=== PATIENT | male | born 1990 | race Caucasian/White ===

== ENCOUNTER 2020-09-03 16:12 | Emergency (ER) | payer MEDICAID, SELFPAY ==
[2020-09-03 16:18] VITALS: BP 139/91; PULSE 80; RESP 14; TEMP 37.3; O2SAT 95; BMI 20.2
--- NOTE | 2020-09-03 16:32 | CT_ITS ---
PROCEDURE: CT ABDOMEN PELVIS W CON CLINICAL INDICATION: abd pain Right lower quadrant pain COMPARISON: No exams were available for comparison TECHNIQUE: IV Contrast: 75ML Isovue 370 Oral Contrast None Axial images obtained with sagittal and coronal reformats. All CT scans at the facility use one or more dose reduction, viz: automated exposure control, ma/kV adjustment per patient size (including targeted exams where dose is matched to indication, i.e. head), or iterative reconstruction technique. FINDINGS: LOWER THORAX: The left lower chest is not included. There is a 6 mm noncalcified nodule in the left lower lobe anteriorly and a 4 mm noncalcified nodule in the subpleural region of the left lower lobe ABDOMEN & PELVIS: The liver, gallbladder, spleen, adrenal glands, pancreas, and kidneys have an unremarkable appearance. No renal or ureteral calculi. No hydronephrosis. The appendix is retrocecal. No evidence of appendicitis. There is a mild amount of retained colonic feces. No intestinal obstruction or free air. There is wall thickening of the gastric antrum and gastric body. There is bilateral pars defects at L5 with only minimal anterolisthesis of L5. IMPRESSION: 1. Thickening of the gastric body and antrum suggesting gastritis. 2. Left lower lobe pulmonary nodules. Consider 6-12 month follow-up. Dictated by: Paulino Hernandez MD 09/03/2020 19:18 Paulino Hernandez MD in [place] 09/03/2020 19:18
[2020-09-03 16:38] LABS: Microscopic, Urine URINE MICROSCOPIC (MICROSCOPIC)
[2020-09-03 16:40] LABS: Appearance,Urine CLEAR (Clear); Bilirubin,Urine Negative (Negative); Blood, Urine Negative (Negative); Color,Urine YELLOW (Yellow); Glucose,Urine (UA) Negative (Negative); Ketones,Urine Negative (Negative); Leukocyte Esterase,Urine Negative (Negative); Nitrate,Urine Negative (Negative); Protein,Urine Negative (Negative); Urobilinogen,Urine 0.2 EU/dl (0.2)
--- NOTE | 2020-09-03 16:56 | HMH.EDGENADL ---
ED Disposition Clinical Impression: Abdominal pain Qualifiers: Abdominal location: generalized Qualified Code(s): R10.84 - Generalized abdominal pain Gastritis Qualifiers: Gastritis type: unspecified gastritis Chronicity: acute Gastritis bleeding: without bleeding Qualified Code(s): K29.00 - Acute gastritis without bleeding Disposition: Home, Self-Care Condition on Discharge: Good Instructions: DI for Gastritis, DI for Abdominal Pain-Adult Additional Instructions: Additional instructions for ABDOMINAL PAIN: See your physician as soon as possible for further evaluation. Return immediately if worsening abdominal pain, vomiting, shortness of breath, fever, vomiting of blood or abdominal distention. Prescriptions: Pantoprazole Sodium [Protonix 40mg tablet] 40 mg PO DAILY #15 tab Prescription Printed Referrals: Kerline Srivastava [Primary Care Provider] - - Critical Care Critical Care Time: No Attestation: On 09/03/20, the high probability of a clinically significant, sudden or life threatening deterioration of the following system(s) required my full and direct attention, intervention and personal management. The time I documented below is in addition to time spent performing reported procedures but includes the following listed in this critical care notation. Medical Decision Making - Dominik Inquiry Pt receiving controlled substance: No Vital Signs: 09/03/20 16:18 09/03/20 18:22 09/03/20 18:58 Temperature 99.2 F 98 F Temperature Source Oral Oral Pulse Rate 78 Pulse Rate [Right Radial] 80 71 Respiratory Rate 14 16 16 Blood Pressure 123/74 Blood Pressure [Right Arm] 139/91 H 123/75 Blood Pressure Mean [Right Arm] 107 91 Blood Pressure Source [Right Arm] Automatic Cuff Automatic Cuff Blood Pressure Position Sitting Blood Pressure Position [Right Arm] Sitting Sitting 02 Sat by Pulse Oximetry 95 97 Oxygen Delivery Method Room Air Room Air Room Air - Lab Data Lab results reviewed: Yes: I reviewed the patient's lab results. Lab Results 09/03/20 16:23: Urine Color Yellow, Urine Appearance Clear, Urine pH 7.0, Ur Specific [place] 1.020, Urine Protein Negative, Urine Glucose (UA) Negative, Urine Ketones Negative, Urine Blood Negative, Urine Nitrate Negative, Urine Bilirubin Negative, Urine Urobilinogen 0.2, Ur Leukocyte Esterase Negative, Urine WBC Occasional, Amorphous Sediment 2+, Urine Bacteria 3+ 09/03/20 16:52: WBC 9.9, RBC 5.57, Hgb 16.5, Hct 49.9, MCV 89.7, MCH 29.7, MCHC 33.1, RDW 13.7, Plt Count 356, MPV 7.5, Neut % (Auto) 62.0, Lymph % (Auto) 26.4, [place] % (Auto) 4.9, Eos % (Auto) 5.7, Baso % (Auto) 1.0, Neut # (Auto) 6.1, Lymph # (Auto) 2.6, [place] # (Auto) 0.5, Eos # (Auto) 0.6 H, Baso # (Auto) 0.1 09/03/20 16:52: Sodium 139, Potassium 4.5, Chloride 101, Carbon Dioxide 29, Anion Gap 13.5, BUN 11, Creatinine 0.90, Estimated Creat Clear 102, Estimated GFR 101, Est GFR ( Amer) 122, Glucose 102 H, Calcium 10.1, Total Bilirubin 0.4, AST 41, ALT 24, Alkaline Phosphatase 106, Total Protein 8.5 H, Albumin 5.2 H, Globulin 3.3 H, Albumin/Globulin Ratio 1.6 09/03/20 16:52: Troponin I < 0.01, Lipase 37 Result diagrams: 09/03/20 16:52 09/03/20 16:52 Orders (Tests/Meds): ED MEDICATIONS Discontinued Medications Generic Name Dose Route Start Last Admin Trade Name Freq PRN Reason Stop Dose Admin Iopamidol 75 ml 09/03/20 17:57 09/03/20 17:58 Iopamidol-370 (76%);100ml Bottle IV 09/03/20 17:58 75 ml ONCE ONE Administration Pantoprazole Sodium 40 mg 09/03/20 18:24 09/03/20 18:34 Pantoprazole 40mg Vial IV 09/03/20 18:25 40 mg ONCE ONE Administration Sodium Chloride 10 ml 09/03/20 17:57 09/03/20 17:58 Sodium Chloride 0.9% 10ml Syr (Rad Only) IV 10/03/20 17:56 10 ml NEEDED PRN Administration Maintain IV Site Sodium Chloride 10 ml 09/03/20 18:24 09/03/20 18:34 Sodium Chloride 0.9% 10ml Vial IV 10/03/20 18:23 10 ml NEEDED PRN Administr
[2020-09-03 16:59] LABS: Amorphous Sediment,Urine 2+ /lpf; Bacteria,Urine 3+ /lpf; WBC,Urine Occasional #/hpf (0-3)
[2020-09-03 17:04] LABS: Basophils # 0.1 K/mm3 (0-0.2); Eosinophils # 0.6 K/mm3 (0.0-0.4); Eosinophils % 5.7 % (0.1-12.0); Hematocrit 49.9 % (42.0-52.0); Hemoglobin 16.5 g/dL (14.1-18.0); Lymphocytes # 2.6 K/mm3 (0.7-4.5); Lymphocytes % 26.4 % (10-50); Mean Corpuscular HGB Conc 33.1 g/dL (31.8-35.4); Mean Corpuscular Hemoglobin 29.7 pg (27.0-31.2); Mean Corpuscular Volume 89.7 fl (80-94); Mean Platelet Volume 7.5 fl (7.4-10.4); Monocytes # 0.5 K/mm3 (0.1-1.0); Monocytes % 4.9 % (1.7-9.3); Neutrophils # 6.1 K/mm3 (1.8-7.8); Platelet Count 356 K/mm3 (142-424); Red Blood Count 5.57 M/mm3 (4.60-6.20); Red Cell Distribution Width 13.7 % (11.5-17.5); White Blood Count 9.9 K/mm3 (4.8-10.8)
[2020-09-03 17:14] LABS: Chloride 101 mmol/L (98-107); Potassium 4.5 mmoL/L (3.5-5.1); Sodium 139 mmol/L (136-145)
[2020-09-03 17:16] LABS: Alanine Aminotransferase 24 U/L (12-78); Aspartate Amino Transferase 41 U/L (17-59); Blood Urea Nitrogen 11 mg/dl (9-20); Creatinine Clearance Estimated 102 mL/min (50-200); Estimated Glomerular Filt Rate 101 ml/min (>60); GFR (African American) 122 ML/MIN (>60)
[2020-09-03 17:17] LABS: Albumin Level 5.2 g/dl (3.5-5.0); Albumin/Globulin Ratio 1.6 (1.1-1.8); Alkaline Phosphatase 106 U/L (38-126); Anion Gap 13.5 mEq/L (5-15); Bilirubin,Total 0.4 mg/dl (0.2-1.3); Calcium 10.1 mg/dl (8.4-10.2); Carbon Dioxide 29 mmol/L (22.0-30.0); Globulin 3.3 g/dL (1.3-3.2); Glucose 102 mg/dl (74-100); Lipase 37 U/L (23-300); Total Protein,Serum 8.5 g/dl (6.3-8.2)
[2020-09-03 17:34] LABS: Troponin I < 0.01 ng/ml (0.00-0.034)
--- NOTE | 2020-09-03 18:02 | PC.NURSE ---
pt return from ct
--- NOTE | 2020-09-03 18:09 | ECG_ITS ---
APPROVED REPORT Exam: Resting ECG HR:70 bpm ECG Measurements Heart Rate [address] 124 P QRSd 94 QRS 126 QT 410 T 121 QTc 442 Conclusion Normal sinus rhythm RSR' or QR pattern in V1 suggests right ventricular conduction delay Lateral infarct, age undetermined Abnormal ECG Electronically signed by : Glenn Sesay, 09/07/2020 07:32:14
[2020-09-03 18:22] VITALS: BP 123/75; PULSE 71; RESP 16; O2SAT 97
[2020-09-03 18:58] VITALS: BP 123/74; PULSE 78; RESP 16; TEMP 36.6; O2SAT 98
== END 2020-09-03 19:00 | disposition home or self-care (01) ==
PROVIDERS: Emergency Provider Emergency Medicine; PCP General Practice
DX: K29.00 Acute gastritis without bleeding (principal); R10.84 Generalized abdominal pain
CPT/HCPCS: 74177; 80053; 81001; 83690; 84484; 85025; 87086; 93005; 96374; 99283; Q9967

== ENCOUNTER 2021-11-10 01:50 | Emergency (ER) | payer MEDICAID, SELFPAY ==
[2021-11-10 01:51] VITALS: BP 108/81; PULSE 86; RESP 16; TEMP 36.8; O2SAT 100; BMI 19.5
--- NOTE | 2021-11-10 02:42 | CT_ITS ---
PROCEDURE INFORMATION: Exam: CT Abdomen And Pelvis With Contrast Exam date and time: 11/10/2021 2:42 AM Age: 30 years old Clinical indication: Nausea and vomiting; Abdominal pain; Additional info: N/v/d and abd pain TECHNIQUE: Imaging protocol: Computed tomography of the abdomen and pelvis with contrast. Radiation optimization: All CT scans at this facility use at least one of these dose optimization techniques: automated exposure control; mA and/or kV adjustment per patient size (includes targeted exams where dose is matched to clinical indication); or iterative reconstruction. Contrast material: ISOVUE; Contrast volume: 75 ml; Contrast route: IV; COMPARISON: CT ABDOMEN PELVIS W CON 09/03/2020 5:50 PM FINDINGS: Lungs: 6 mm nodule in the left lower lung. Liver: Region of decreased attenuation in the left hepatic lobe likely represents focal fatty infiltration. The rest of the liver is unremarkable. Gallbladder and bile ducts: Normal. No calcified stones. No ductal dilation. Pancreas: Normal. No ductal dilation. Spleen: Normal. No splenomegaly. Adrenal glands: Normal. No mass. Kidneys and ureters: Normal. No hydronephrosis. Stomach and bowel: Unremarkable. No obstruction. No mucosal thickening. Appendix: No evidence of appendicitis. Intraperitoneal space: Unremarkable. No free air. No significant fluid collection. Vasculature: Unremarkable. No abdominal aortic aneurysm. Lymph nodes: Unremarkable. No enlarged lymph nodes. Urinary bladder: Unremarkable as visualized. Reproductive: Unremarkable as visualized. Bones/joints: Bilateral L5 pars defects. Soft tissues: Unremarkable. IMPRESSION: 1. No acute appearing findings. 2. Bilateral L5 pars defects. 3. 6 mm nodule in the left lower lung is slightly bigger. For patients at low risk (minimal or absent history of smoking and of other known risk factors), recommend CT Chest at 3-6 months, then consider CT Chest at 18-24 months. For patients at high risk (history of smoking or of other known risk factors), recommend CT Chest at 3-6 months, then CT Chest at 18-24 months. (Reference: Lakeshia) REFERENCES: Lakeshia Dias et al. Guidelines for Management of Incidental Pulmonary Nodules Detected on CT Images: From the Fleischner Society 2017. Radiology. 2017;284(1):228-243.
[2021-11-10 02:50] LABS: Microscopic, Urine URINE MICROSCOPIC (MICROSCOPIC)
[2021-11-10 02:54] LABS: Appearance,Urine CLEAR (Clear); Blood, Urine TRACE-I (Negative); Color,Urine YELLOW (Yellow); Glucose,Urine (UA) Negative (Negative); Ketones,Urine 2+ (Negative); Leukocyte Esterase,Urine Negative (Negative); Nitrate,Urine Negative (Negative); PH,Urine 5.5 (5.0-8.5); Protein,Urine TRACE (Negative); Specific Gravity, Urine >= 1.030 (1.005-1.030); Urobilinogen,Urine 0.2 EU/dl (0.2)
[2021-11-10 02:57] LABS: Basophils # 0.1 K/mm3 (0-0.2); Basophils % 0.4 % (0.1-2.0); Eosinophils # 0.1 K/mm3 (0.0-0.4); Eosinophils % 0.7 % (0.1-12.0); Hematocrit 39.3 % (42.0-52.0); Hemoglobin 12.3 g/dL (14.1-18.0); Lymphocytes # 0.7 K/mm3 (0.7-4.5); Lymphocytes % 4.5 % (10-50); Mean Corpuscular HGB Conc 31.4 g/dL (31.8-35.4); Mean Corpuscular Volume 92.3 fl (80-94); Mean Platelet Volume 7.8 fl (7.4-10.4); Monocytes # 0.3 K/mm3 (0.1-1.0); Monocytes % 2.1 % (1.7-9.3); Neutrophils # 13.5 K/mm3 (1.8-7.8); Neutrophils % 92.2 % (37.0-80.0); Platelet Count 430 K/mm3 (142-424); Red Blood Count 4.26 M/mm3 (4.60-6.20); Red Cell Distribution Width 13.2 % (11.5-17.5); White Blood Count 14.7 K/mm3 (4.8-10.8)
[2021-11-10 03:03] LABS: Alanine Aminotransferase 23 U/L (12-78); Albumin Level 4.4 g/dl (3.5-5.0); Albumin/Globulin Ratio 1.5 (1.1-1.8); Alkaline Phosphatase 85 U/L (38-126); Anion Gap 13.4 mEq/L (5-15); Aspartate Amino Transferase 42 U/L (17-59); Bilirubin,Total 0.6 mg/dl (0.2-1.3); Blood Urea Nitrogen 17 mg/dl (9-20); Calcium 9.2 mg/dl (8.4-10.2); Carbon Dioxide 30 mmol/L (22.0-30.0); Chloride 98 mmol/L (98-107); Creatinine Clearance Estimated 126 mL/min (50-200); Estimated Glomerular Filt Rate 134 ml/min (>60); GFR (African American) 162 ML/MIN (>60); Glucose 123 mg/dl (74-100); Lipase 11 U/L (23-300); Potassium 4.4 mmoL/L (3.5-5.1); Sodium 137 mmol/L (136-145); Total Protein,Serum 7.4 g/dl (6.3-8.2)
[2021-11-10 03:19] LABS: Bilirubin,Urine Negative (Negative)
[2021-11-10 03:20] LABS: MANUAL DIFFERENTIAL MANUAL DIFFERENTIAL (MANUAL DIFF)
[2021-11-10 03:21] LABS: Bacteria,Urine 1+ /lpf; Mucus,Urine 1+ /lpf
--- NOTE | 2021-11-10 03:43 | HMH.EDABDPAI ---
ED Disposition Clinical Impression: Gastroenteritis Disposition: Home, Self-Care Condition on Discharge: Good Instructions: Viral Gastroenteritis, DI for Acute Abdominal Pain Additional Instructions: Please follow up with your primary care physician in 2-3 days for further management. Please use the zofran as prescribed, may also use tylenol and ibuprofen. Please also use the cefdinir as prescribed. Please return to the ED for any concerning symptom such as inability to have bowel movement, bloody stools, chest pain, lethargy or any other concerning symptoms. Prescriptions: Cefdinir [Cefdinir 250mg/5ml Oral Susp] 250 mg PO BID #14 ml Transmission Status: Sent to [facility] Ondansetron [Zofran 4mg ODT] 4 mg PO TIDP PRN #20 tab PRN Reason: Nausea Transmission Status: Received by [facility] Referrals: Kerline Srivastava [Primary Care Provider] - Forms: Work/School Release Time of Disposition: 03:55 - Critical Care Critical Care Time: No Attestation: On 11/10/21, the high probability of a clinically significant, sudden or life threatening deterioration of the following system(s) required my full and direct attention, intervention and personal management. The time I documented below is in addition to time spent performing reported procedures but includes the following listed in this critical care notation. Medical Decision Making - Medical Records Medical records reviewed: Yes: I reviewed the patient's medical records. - Dominik Inquiry Pt receiving controlled substance: No Vital Signs: 11/10/21 01:51 11/10/21 03:55 Temperature 98.3 F 98.4 F Temperature Source Oral Oral Pulse Rate 68 Pulse Rate [Right Radial] 86 Respiratory Rate 16 14 Blood Pressure 120/76 Blood Pressure [Right Arm] 108/81 L Blood Pressure Mean [Right Arm] 90 Blood Pressure Source Automatic Cuff Blood Pressure Source [Right Arm] Automatic Cuff Blood Pressure Position Sitting Blood Pressure Position [Right Arm] Sitting 02 Sat by Pulse Oximetry 100 Oxygen Delivery Method Room Air Room Air - Lab Data Lab results reviewed: Yes: I reviewed the patient's lab results. Lab Results 11/10/21 02:05: Urine Color Yellow, Urine Appearance Clear, Urine pH 5.5, Ur Specific [place] >= 1.030, Urine Protein Trace, Urine Glucose (UA) Negative, Urine Ketones 2+, Urine Blood Trace-i, Urine Nitrate Negative, Urine Bilirubin Negative, Urine Urobilinogen 0.2, Ur Leukocyte Esterase Negative, Urine WBC 3-5, Urine Bacteria 1+, Urine Mucus 1+ 11/10/21 02:30: WBC 14.7 H, RBC 4.26 L, Hgb 12.3 L, Hct 39.3 L, MCV 92.3, MCH 29.0, MCHC 31.4 L, RDW 13.2, Plt Count 430 H, MPV 7.8, Neut % (Auto) 92.2 H, Lymph % (Auto) 4.5 L, [place] % (Auto) 2.1, Eos % (Auto) 0.7, Baso % (Auto) 0.4, Neut # (Auto) 13.5 H, Lymph # (Auto) 0.7, [place] # (Auto) 0.3, Eos # (Auto) 0.1, Baso # (Auto) 0.1, Total Counted 100, Neutrophils % (Manual) 92 H, Lymphocytes % (Manual) 8 L, Platelet Estimate Normal, Macrocytosis 1+, Ovalocytes 1+, Acanthocytes (Spur) 1+ 11/10/21 02:30: Sodium 137, Potassium 4.4, Chloride 98, Carbon Dioxide 30, Anion Gap 13.4, BUN 17, Creatinine 0.70, Estimated Creat Clear 126, Estimated GFR 134, Est GFR ( Amer) 162, Glucose 123 H, Calcium 9.2, Total Bilirubin 0.6, AST 42, ALT 23, Alkaline Phosphatase 85, Total Protein 7.4, Albumin 4.4, Globulin 3.0, Albumin/Globulin Ratio 1.5, Lipase 11 L Result diagrams: 11/10/21 02:30 11/10/21 02:30 Orders (Tests/Meds): ED MEDICATIONS Discontinued Medications Generic Name Dose Route Start Last Admin Trade Name Freq PRN Reason Stop Dose Admin Lactated Ringer's 1,000 mls @ 999 mls/hr 11/10/21 02:45 11/10/21 02:50 Lactated Ringer's 1000 Ml Bag IV 11/10/21 03:45 999 mls/hr .Q1H1M ONEL Administration Iopamidol 75 ml 11/10/21 03:08 11/10/21 03:09 Iopamidol-370 (76%);100ml Bottle IV 11/10/21 03:09 75 ml ONCE ONE Administration Ketorolac Tromethamine 30 mg 11/10/21 02:44 11/10/21 02:
[2021-11-10 03:55] VITALS: BP 120/76; PULSE 68; RESP 14; TEMP 36.9; O2SAT 98
[2021-11-10 04:01] LABS: Acanthocytes 1+; Lymphocytes % 8 % (10-50); Macrocytosis 1+; Neutrophils % 92 % (42-76); Ovalocytes 1+; Platelet Estimate Normal; Total Cells Counted 100
== END 2021-11-10 03:57 | disposition home or self-care (01) ==
PROVIDERS: Emergency Provider Student in an Organized Health Care Education/Training Program; PCP General Practice
DX: R10.9 Unspecified abdominal pain (principal); B34.9 Viral infection, unspecified; R11.10 Vomiting, unspecified; Z79.899 Other long term (current) drug therapy
CPT/HCPCS: 74177; 80053; 81001; 83690; 85007; 85025; 96365; 96375; 99283; J2405; Q9967

== ENCOUNTER 2021-11-11 09:51 | Emergency (ER) | payer MEDICAID, SELFPAY ==
[2021-11-11 09:53] VITALS: BP 129/90; PULSE 91; RESP 18; TEMP 37.1; O2SAT 98; BMI 19.5
--- NOTE | 2021-11-11 10:35 | HMH.EDNVD ---
ED Disposition Clinical Impression: Vomiting Disposition: Home, Self-Care Condition on Discharge: Good Instructions: Nausea and Vomiting-Adult Additional Instructions: Please follow up with your primary care physician in 2-3 days for further management. Please take your zofran by placing under your tongue. Please continue to take your medication for your urinary tract infection. May also take tylenol and ibuprofen for pain control. Please return for any concerning symptoms such as difficulty breathing, vomiting blood, vomiting green or any other concerning symptoms. Referrals: Kerline Srivastava [Primary Care Provider] - - Critical Care Critical Care Time: No Attestation: On 11/11/21, the high probability of a clinically significant, sudden or life threatening deterioration of the following system(s) required my full and direct attention, intervention and personal management. The time I documented below is in addition to time spent performing reported procedures but includes the following listed in this critical care notation. Medical Decision Making - Medical Records Medical records reviewed: Yes: I reviewed the patient's medical records. - Dominik Inquiry Pt receiving controlled substance: No Vital Signs: 11/11/21 09:53 11/11/21 10:38 Temperature 98.7 F Temperature Source Oral Pulse Rate [Right Radial] 91 H Respiratory Rate 18 Blood Pressure 128/77 Blood Pressure [Right Arm] 129/90 Blood Pressure Mean [Right Arm] 103 Blood Pressure Source [Right Arm] Automatic Cuff Blood Pressure Position [Right Arm] Right Lateral 02 Sat by Pulse Oximetry 98 100 Oxygen Delivery Method Room Air Room Air - Lab Data Lab results reviewed: Yes: I reviewed the patient's lab results. Orders (Tests/Meds): ED MEDICATIONS Discontinued Medications Generic Name Dose Route Start Last Admin Trade Name Charles PRN Reason Stop Dose Admin Ondansetron HCl 4 mg 11/11/21 10:27 11/11/21 10:34 Ondansetron 4mg Odt SL 11/11/21 10:28 4 mg ONCE ONE Administration Medical Decision Narrative: Mr. Shetty is a 30 yo male w/ no significant PMH who presents to the ED for abdominal pain, N/V, recblly seen yesterday for the same thing. Patient is afebrile and hemodynamically stable on arrival. Abdomen is non perionitic no rebound or guarding, mild abdominal tenderness. Physical exam no clinical signs of dehydration, cap refill <2, goo dskin turgor. Patient is given zofran ODT and po challenged successfully. Patient is instructed to keep plan given to him during his prior visit. He will follow up with his primary care team. He will utilize the zofran as prescribed to help w/ symptoms. Patient instructed to drink plenty of water and to eat 3 balanced meals. Patient provided strict return precuations such as inability to eat and drink . Nausea/Vomiting/Diarrhea HPI - General Chief complaint: Nausea/Vomiting/Diarrhea Stated complaint: vomiting, chills Time Seen by Provider: 11/11/21 09:55 Mode of Arrival: Ambulatory Source of Information: Patient Limitations: No Limitations Description of Symptoms (Recalled from ER Triage Doc. by RN): Pt c/o N/V/D. Pt states that he was seen in the ED last week for same symptoms, got to feeling better, then began again this AM - History of Present Illness HPI Narrative: Mr. Shetty is a 30 yo male w/ no significant PMH who presents to the ED for nausea and vomiting. Patient was seen in the ED yesterday for the same thing within the last 24 hours. He reports that he did not take his zofran because he is unable to keep it down. He reports that he has also been unable to take his cefdiniri due to vomiting. He continue to have non bloody non bilious emesis. Patient denies any fevers, chills, chest pain, dyspnea, or other systemic signs of infection. Bowel movements have been normal. He denies any other infectious symptoms. MD complaint: nausea, vomiting Onset (ago): day(s) Description of Vomiting: food
[2021-11-11 10:38] VITALS: BP 128/77; O2SAT 100
[2021-11-11 11:03] VITALS: BP 116/64; PULSE 90; RESP 16; TEMP 36.8; O2SAT 97
== END 2021-11-11 11:05 | disposition home or self-care (01) ==
PROVIDERS: Emergency Provider Student in an Organized Health Care Education/Training Program; PCP General Practice
DX: R11.2 Nausea with vomiting, unspecified (principal)
CPT/HCPCS: 99281

== ENCOUNTER 2023-05-16 19:50 | Emergency (ER) | payer MEDICAID, SELFPAY ==
[2023-05-16 19:51] VITALS: BP 127/82; PULSE 72; RESP 17; TEMP 37.2; O2SAT 99; BMI 18.8
--- NOTE | 2023-05-16 19:51 | ECG_ITS ---
APPROVED REPORT Exam: Resting ECG HR:71 bpm ECG Measurements Heart Rate [address] 124 P 60 QRSd 102 QRS 91 QT 373 T 72 QTc 396 Conclusion SINUS RHYTHM BORDERLINE RIGHT AXIS DEVIATION [QRS AXIS > 90] BORDERLINE ECG UNCONFIRMED REPORT Electronically signed by : Glenn Sesay MD 05/16/2023 20:41:38
--- NOTE | 2023-05-16 19:55 | XR_ITS ---
PROCEDURE INFORMATION: Exam: XR Chest Exam date and time: 05/16/2023 7:55 PM Age: 32 years old Clinical indication: Pain; Right-sided; Additional info: Right sided chest pain, no chest surgeries. Patient uses electronic cigarettes. TECHNIQUE: Imaging protocol: Radiologic exam of the chest. Views: 2 views. COMPARISON: CT ABDOMEN PELVIS W CON 11/10/2021 3:00 AM FINDINGS: Lungs: Hyperlucent changes are demonstrated. Increase in the lung volumes is demonstrated. Pleural spaces: Unremarkable. No pleural effusion. No pneumothorax. Heart/Mediastinum: Unremarkable. No cardiomegaly. Diaphragm: There is flattening of the hemidiaphragms. Bones/joints: Unremarkable. IMPRESSION: Findings suggesting mild changes of chronic obstructive pulmonary disease.
[2023-05-16 20:00] VITALS: BP 125/96; PULSE 80; O2SAT 98
--- NOTE | 2023-05-16 20:03 | HMH.EDGENADL ---
Discharge Plan Disposition Patient Disposition: Home, Self-Care Condition: Good Prescriptions Prescriptions: No Action buprenorphine-naloxone 1 EACH tablet, sublingual 2 each SL DAILY ondansetron 4 MG tablet,disintegrating 4 mg PO TIDP PRN (Reason: Nausea) Qty: 20 0RF cefdinir 250 MG/5 ML suspension for reconstitution 250 mg PO BID Qty: 14 0RF Referrals Follow up/Referrals: Kerline Srivastava MD [Primary Care Provider] - See instructions Activity Restrictions/Add. Instructions Additional Instructions/Restrictions: Please follow-up with your primary care provider. Please return to the emergency department if you develop any new or worsening symptoms or become concerned for your health. Clinical Impressions Clinical Impression: Atypical chest pain Discharge ED Provider: Govind Farias Adult HPI General Chief complaint: Chest Pain Stated complaint: Chest pain Time Seen by Provider: 05/16/23 19:55 Mode of Arrival: Ambulatory Source of Information: Patient Limitations: No Limitations Description of Symptoms (Recalled from ER Triage Doc. by RN): 32 M presents from home with 2 nights of worsening chest pain. Patient reports this is right sided at his nipple specifically. He describes it as sharp and stabbing. Patient denies cardiac history. NAD, VSS. History of Present Illness HPI narrative: 32-year-old male, previously healthy, presents with right-sided chest pain for the last 2 days. Reports it started as he was playing with his 2-year-old. Pain is intermittent. Nothing specifically makes it better or worse. No reported cardiac history. No history of blood clots or recent mobilization. Related Data Home Medications Medication Instructions Recorded Confirmed buprenorphine 8 mg-naloxone 2 mg 2 each SL DAILY Opiod addiction 11/10/21 11/10/21 sublingual tablet Previous Rx's Medication Instructions Recorded cefdinir 250 mg/5 mL oral 250 mg (5 mL) PO BID #14 mL 11/10/21 suspension ondansetron 4 mg disintegrating 4 mg PO TIDP PRN Nausea #20 tabs 11/10/21 tablet Allergies Allergy/AdvReac Type Severity Reaction Status Date / Time No Known Allergies Allergy Verified 09/03/20 16:32 [facility] Disclaimer: The information contained in this section may have been updated after the patient was seen, as this information can be updated by other users. Social History Smoking Status: Current every day smoker alcohol intake: current current occupational status: previously employed Travel in the last 8 weeks: None ROS Obtained: Yes All systems reviewed & no additional complaints except as documented Physical Exam General General appearance: alert and anxious Head Head exam: atraumatic and normocephalic Eye Eye exam: Present normal appearance, PERRL and EOMI ENT ENT exam: Present normal oropharynx and normal external ear exam Neck Neck exam: Present normal inspection and full ROM Chest Chest inspection: Present normal inspection and symmetric chest wall rise; Absent tenderness Respiratory Respiratory exam: Present normal lung sounds bilaterally; Absent respiratory distress Cardiovascular Cardiovascular exam: Present regular rate and normal rhythm Abdominal Exam Abdominal exam: Present soft; Absent distention, tenderness or guarding Extremities Exam Extremities exam: Present normal inspection; Absent edema or joint swelling Back Exam Back exam: Present normal inspection; Absent tenderness Neurological Exam Neurological exam: Present alert and oriented X3; Absent motor sensory deficit Psychiatric Psychiatric exam: Present normal affect and normal mood Skin Skin exam: Present warm, dry and normal color Lymphatic Lymphatic Findings: no adenopathy Medical Decision Making Medical Records Medical records reviewed: Yes I reviewed the patient's medical records. Dominik Inquiry Pt receiving controlled substance: No Dominik was queried for this patient: No Vital S
[2023-05-16 20:08] LABS: Basophils # 0.1 K/mm3 (0-0.2); Basophils % 0.6 % (0.1-2.0); Eosinophils # 0.2 K/mm3 (0.0-0.4); Eosinophils % 2.4 % (0.1-12.0); Hematocrit 43.9 % (42.0-52.0); Lymphocytes # 2.7 K/mm3 (0.7-4.5); Lymphocytes % 26.2 % (10-50); Mean Corpuscular HGB Conc 31.9 g/dL (31.8-35.4); Mean Corpuscular Hemoglobin 29.3 pg (27.0-31.2); Mean Corpuscular Volume 91.8 fl (80-94); Mean Platelet Volume 7.9 fl (7.4-10.4); Monocytes # 0.5 K/mm3 (0.1-1.0); Monocytes % 5.3 % (1.7-9.3); Neutrophils # 6.7 K/mm3 (1.8-7.8); Neutrophils % 65.4 % (37.0-80.0); Platelet Count 333 K/mm3 (142-424); Red Blood Count 4.79 M/mm3 (4.60-6.20); Red Cell Distribution Width 13.4 % (11.5-17.5); White Blood Count 10.2 K/mm3 (4.8-10.8)
[2023-05-16 20:18] LABS: Alanine Aminotransferase 23 U/L (12-78); Albumin/Globulin Ratio 1.9 (1.1-1.8); Alkaline Phosphatase 65 U/L (38-126); Anion Gap 11.5 mEq/L (5-15); Aspartate Amino Transferase 35 U/L (17-59); Bilirubin,Total 0.2 mg/dl (0.2-1.3); Blood Urea Nitrogen 13 mg/dl (9-20); Calcium 8.9 mg/dl (8.4-10.2); Carbon Dioxide 32 mmol/L (22.0-30.0); Chloride 102 mmol/L (98-107); Creatinine Clearance Estimated 92 mL/min (50-200); Estimated Glomerular Filt Rate 99 ml/min (>60); GFR (African American) 120 ML/MIN (>60); Globulin 2.6 g/dL (1.3-3.2); Glucose 86 mg/dl (74-100); Potassium 3.5 mmoL/L (3.5-5.1); Sodium 142 mmol/L (136-145); Total Protein,Serum 7.6 g/dl (6.3-8.2)
[2023-05-16 20:30] VITALS: BP 100/71; PULSE 74; O2SAT 97
[2023-05-16 20:41] LABS: Troponin I < 0.01 ng/ml (0.00-0.034)
[2023-05-16 21:23] VITALS: BP 106/75; PULSE 79; RESP 17; TEMP 36.9; O2SAT 98
== END 2023-05-16 21:22 | disposition home or self-care (01) ==
PROVIDERS: Emergency Provider Emergency Medicine; PCP General Practice
DX: R07.89 Other chest pain (principal); F17.200 Nicotine dependence, unspecified, uncomplicated
CPT/HCPCS: 71046; 80053; 84484; 85025; 93005; 99285

== ENCOUNTER 2023-07-21 19:04 | Emergency (ER) | payer MEDICAID, SELFPAY ==
[2023-07-21 19:05] VITALS: BP 135/93; PULSE 91; RESP 18; TEMP 37.1; O2SAT 99; BMI 19.5
--- NOTE | 2023-07-21 19:31 | HMH.EDGENADL ---
Discharge Plan Disposition Patient Disposition: Home, Self-Care Prescriptions Prescriptions: New prednisone 20 mg tablet 40 mg PO BID 5 Days Qty: 20 0RF No Action buprenorphine-naloxone 1 EACH tablet, sublingual 2 each SL DAILY ondansetron 4 MG tablet,disintegrating 4 mg PO TIDP PRN (Reason: Nausea) Qty: 20 0RF cefdinir 250 MG/5 ML suspension for reconstitution 250 mg PO BID Qty: 14 0RF Referrals Follow up/Referrals: Kreline Srivastava MD [Primary Care Provider] - See instructions Activity Restrictions/Add. Instructions Additional Instructions/Restrictions: Call your family doctor to establish care for this visit to the emergency department and schedule follow-up within 48 hours to ensure improvement. If you have any worsening of your condition or any other concerning signs or symptoms, return to the emergency department or your primary care doctor for further evaluation. Talk to your family doctor about scheduling physical therapy for meniscus tear. Clinical Impressions Clinical Impression: Acute pain of right knee, Acute medial meniscal tear Discharge ED Provider: Jaswant Asher General Adult HPI General Chief complaint: PAIN Stated complaint: right knee pain and swelling, no accident Time Seen by Provider: 07/21/23 19:13 Mode of Arrival: Ambulatory Source of Information: Patient Limitations: No Limitations Description of Symptoms (Recalled from ER Triage Doc. by RN): Patient reports right knee pain 6/10 starting approximately 1 week ago. With new onset swelling of the outer aspect of knee starting 3 days ago. Patient denies any fall or repetitive work injury. Patient reports no history of joint disease or arthritis. History of Present Illness HPI narrative: 32-year-old male presenting with atraumatic right knee pain. Started couple days ago, hurts middle aspect of his right knee. Minimal swelling medial aspect of his right knee. No redness, swelling of the calf, patient is still able to bear weight. No fevers or chills, or any other swollen, painful joints. Related Data Home Medications Medication Instructions Recorded Confirmed buprenorphine 8 mg-naloxone 2 mg 2 each SL DAILY Opiod addiction 11/10/21 11/10/21 sublingual tablet Previous Rx's Medication Instructions Recorded cefdinir 250 mg/5 mL oral 250 mg (5 mL) PO BID #14 mL 11/10/21 suspension ondansetron 4 mg disintegrating 4 mg PO TIDP PRN Nausea #20 tabs 11/10/21 tablet prednisone 20 mg tablet 40 mg PO BID 5 days #20 tabs 07/21/23 Allergies Allergy/AdvReac Type Severity Reaction Status Date / Time No Known Allergies Allergy Verified 09/03/20 16:32 [facility] Disclaimer: The information contained in this section may have been updated after the patient was seen, as this information can be updated by other users. Social History (Updated 05/16/23 @ 23:46 by Govind Farias MD) Smoking Status: Current every day smoker alcohol intake: current current occupational status: previously employed Travel in the last 8 weeks: None ROS Obtained: Yes All systems reviewed & no additional complaints except as documented Physical Exam General General appearance: alert and in no apparent distress Respiratory Respiratory exam: Absent respiratory distress Cardiovascular Cardiovascular exam: Present regular rate and normal rhythm Extremities Exam Extremities exam: Present full ROM and other (Tenderness medial aspect of right joint space. No obvious swelling. No unilateral changes as compared to left. Mild tenderness to posterior medial aspect of knee and popliteal fossa without swelling. Neurovascularly intact) Neurological Exam Neurological exam: Present alert Medical Decision Making Medical Records Medical records reviewed: Yes I reviewed the patient's medical records. Dominik Inquiry Pt receiving controlled substance: No Vital Signs: 07/21/23 19:05 Temperature 98.8 F Temperature Source Or
[2023-07-21 19:44] VITALS: BP 128/89; PULSE 90; RESP 17; TEMP 36.6; O2SAT 95
== END 2023-07-21 19:47 | disposition home or self-care (01) ==
PROVIDERS: Emergency Provider Emergency Medicine; PCP General Practice
DX: S83.241A Other tear of medial meniscus, current injury, right knee, initial encounter (principal); M25.561 Pain in right knee; F17.210 Nicotine dependence, cigarettes, uncomplicated; X58.XXXA Exposure to other specified factors, initial encounter
CPT/HCPCS: 99284

== ENCOUNTER 2023-10-21 12:00 | Emergency (ER) | payer SELFPAY ==
[2023-10-21 12:03] VITALS: BP 145/86; PULSE 94; RESP 18; TEMP 36.9; O2SAT 99; BMI 18.8
--- NOTE | 2023-10-21 12:09 | PC.NURSE ---
Pt wound soaking in hibiclens and sterile water
--- NOTE | 2023-10-21 12:11 | XR_ITS ---
PROCEDURE INFORMATION: Exam: XR Left Hand Exam date and time: 10/21/2023 12:13 PM Age: 32 years old Clinical indication: Injury or trauma; Other: Cut by tailgate; Laceration; Left; Index finger and middle finger and ring finger; Additional info: [place] trauma digits 2/4 TECHNIQUE: Imaging protocol: Radiologic exam of the left hand. Views: 3 or more views. COMPARISON: No relevant prior studies available. FINDINGS: Bones/joints: There is no evidence of acute fracture.There is no evidence of malalignment or dislocation. Soft tissues: Normal. IMPRESSION: There is no evidence of acute fracture.There is no evidence of malalignment or dislocation.
--- NOTE | 2023-10-21 12:11 | ED_ITS ---
Discharge Plan Disposition Patient Disposition: Home, Self-Care Chief Complaint: Wound/Laceration Prescriptions Prescriptions: No Action buprenorphine-naloxone 1 EACH tablet, sublingual 2 each SL DAILY ondansetron 4 MG tablet,disintegrating 4 mg PO TIDP PRN (Reason: Nausea) Qty: 20 0RF cefdinir 250 MG/5 ML suspension for reconstitution 250 mg PO BID Qty: 14 0RF prednisone 20 mg tablet 40 mg PO BID 5 Days Qty: 20 0RF Referrals Follow up/Referrals: Kerline Srivastava MD [Primary Care Provider] - See instructions Activity Restrictions/Add. Instructions Additional Instructions/Restrictions: At this time it was felt you are safe to be discharged home. If new or wors ening symptoms please do not hesitate to return the emergency department. Please apply the bacitracin ointment to your open wounds once a day for 2 days. Please change your dressing once daily and then subsequently allow your wound to scab over and heal. Clinical Impressions Clinical Impression: Hand trauma, Skin tear of left hand without complication Instructions Patient Instructions: DI for Laceration Repair Discharge ED Provider: Ousmane Avila General Adult HPI General Chief complaint: Wound/Laceration Stated complaint: AO 10/21 laceration to left pointer&middle finger Time Seen by Provider: 10/21/23 12:00 History of Present Illness HPI narrative: Patient is a 32-year-old male with no pertinent past medical history presents emergency department for evaluation of dorsal hand trauma on the left. Patient is right-handed. Patient got his fingers 2-4 caught in a tailgate resulting in a wound causing him to present here for evaluation. Last Tdap unknown. No other acute complaints or other trauma sustained. Related Data Home Medications Medication Instructions Recorded Confirmed buprenorphine 8 mg-naloxone 2 mg 2 each SL DAILY Opiod addiction 11/10/21 11/10/21 sublingual tablet Previous Rx's Medication Instructions Recorded cefdinir 250 mg/5 mL oral 250 mg (5 mL) PO BID #14 mL 11/10/21 suspension ondansetron 4 mg disintegrating 4 mg PO TIDP PRN Nausea #20 tabs 11/10/21 tablet prednisone 20 mg tablet 40 mg PO BID 5 days #20 tabs 07/21/23 Allergies Allergy/AdvReac Type Severity Reaction Status Date / Time No Known Allergies Allergy Verified 09/03/20 16:32 [facility] Disclaimer: The information contained in this section may have been updated after the patient was seen, as this information can be updated by other users. Social History (Updated 05/16/23 @ 23:46 by Govind Farias MD) Smoking Status: Current every day smoker alcohol intake: current current occupational status: previously employed Travel in the last 8 weeks: None ROS Obtained: Yes Systems reviewed as appropriate & no additional complaints except as documented Physical Exam General General appearance: alert and in no apparent distress Head Head exam: atraumatic and normocephalic Eye Eye exam: Present PERRL ENT ENT exam: Present mucous membranes moist Neck Neck exam: Present normal inspection Chest Chest inspection: Present normal inspection and symmetric chest wall rise Respiratory Respiratory exam: Absent respiratory distress Cardiovascular Cardiovascular exam: Present regular rate and normal rhythm Extremities Exam Extremities exam: Present other (Scattered skin tears over the dorsal digits 2 through 4, no deep lacerations. Tenderness over the proximal middle phalanges digits 2 through 4 distal capillary refill preserved. No nailbed injuries. Palpable left radial pulse.) Neurological Exam Neurological exam: Present alert Psychiatric Psychiatric exam: Present normal affect Skin Skin exam: Present warm and dry Medical Decision Making [place] Inquiry Pt receiving controlled substance: No Vital Signs: 10/21/23 12:03 Temperature 98.4 F Temperature Source Oral Pulse Rate [Right] 94 H Respiratory Rate 18 Blood Pressure [Right Arm] 145/86 H Blood Pressure Mean [Right Arm] 105 Blood Pressure Source [Right Arm] Automatic Cuff 02 Sat by Pulse Oximetry 99 Oxygen Delivery Method Room Air Orders (Tests/Meds): ED MEDICATIONS Generic Name Dose Route Start Last Admin Trade Name Freq PRN Reason Stop Dose Admin Tetanus/Reduced Diphtheria/Acell Pertussis 0.5 ml 10/21/23 12:11 10/21/23 12:27 Tet/Diphth/Pert-Adult 0.5ml Syringe IM 10/21/23 12:12 0.5 ml .ONCE ONE Administration ORDERS Category Date Time Status Hand XR left minimum 3 views [XR hand LT min 3V] Stat Exams 10/21/23 12:11 Taken Medical Decision Narrative: In summary patient is a 32-year-old male past medical history described above presents emergency department for evaluation of traumatic injury sustained getting his hand caught in a tailgate. Patient is hemodynamically stable nontoxic upon arrival, limited trauma per history and physical exam. Given this trauma survey will be conducted with plain film of the left hand. Wounds are skin tears and will be irrigated however primary repair with sutures is not indicated. Plain films will be obtained screening for fracture. Tdap will be updated given greater than 5 years since last administration. Wound was cleaned at bedside, 2 skin tears were repaired with glue, remainder of wounds will be left to heal by secondary intention. Wound was dressed at bedside. X-ray informally interpreted by me, no acute significantly displaced fracture or dislocation. Given this patient is appropriate for discharge at this time. Wound repair and dressing noted. Procedure performed by Ousmane Avila, dressing applied by tech. Using Dermabond skin tears were glued to facilitate approximation where able, site #1 with skin tear over the dorsal middle phalanx, site 2 was the dorsal second phalanx and dorsal second PIP joint. Where tissue was completely avulsed they were covered in bacitracin and will be left a heal by secondary intention. Nonstick gauze was applied over the wounds and they were wrapped in Kerlix. The index finger was placed in a splint to help facilitate wound healing over the joint. Patient tolerated the procedure well. There were no immediate complications Critical Care Critical Care Time Critical Care Time: No
--- NOTE | 2023-10-21 12:17 | PC.NURSE ---
RAD at BS for hand XRAY
[2023-10-21] MEDS: TET/DIPHTH/PERT-ADULT 0.5ML SYRINGE 0.5 ML IM (12:27)
[2023-10-21 12:40] VITALS: BP 130/88; PULSE 77; RESP 18; TEMP 36.6; O2SAT 96
== END 2023-10-21 12:45 | disposition home or self-care (01) ==
PROVIDERS: Emergency Provider Emergency Medicine; PCP General Practice
DX: S61.412A Laceration without foreign body of left hand, initial encounter (principal); S69.90XA Unspecified injury of unspecified wrist, hand and finger(s), initial encounter; F17.210 Nicotine dependence, cigarettes, uncomplicated; Z23 Encounter for immunization; W23.0XXA Caught, crushed, jammed, or pinched between moving objects, initial encounter
CPT/HCPCS: 73130; 90471; 90715; 99283

== ENCOUNTER 2023-12-09 22:56 | Emergency (ER) | payer MEDICAID, SELFPAY ==
--- NOTE | 2023-12-09 22:55 | ECG_ITS ---
APPROVED REPORT Exam: Resting ECG HR:70 bpm ECG Measurements Heart Rate 70 AXES MO 118 P 71 QRSd 108 QRS 90 QT 377 T 70 QTc 398 Conclusion SINUS RHYTHM WITH SHORT MO INTERVAL INCOMPLETE RIGHT BUNDLE BRANCH BLOCK [90+ ms QRS DURATION, TERMINAL R IN V1/V2, 40+ ms S IN I/aVL/V4/V5/V6] BORDERLINE ECG UNCONFIRMED REPORT Electronically signed by : LAKIA FINE, 12/12/2023 10:50:44
[2023-12-09 22:56] VITALS: BP 135/87; PULSE 82; RESP 14; TEMP 36.9; O2SAT 96; BMI 19.3
[2023-12-09 23:00] VITALS: BP 133/85; PULSE 74; RESP 14; O2SAT 98
[2023-12-09 23:13] VITALS: PULSE 70
--- NOTE | 2023-12-09 23:16 | XR_ITS ---
PROCEDURE INFORMATION: Exam: XR Chest Exam date and time: 12/09/2023 11:28 PM Age: 32 years old Clinical indication: Pain; Chest pressure; Additional info: Chest pain TECHNIQUE: Imaging protocol: Radiologic exam of the chest. Views: 2 views. COMPARISON: CR XR CHEST 2V 05/16/2023 7:55 PM FINDINGS: Lungs: Unremarkable. No consolidation. Pleural spaces: Unremarkable. No pleural effusion. No pneumothorax. Heart/Mediastinum: Unremarkable. No cardiomegaly. Bones/joints: Unremarkable. IMPRESSION: No acute findings.
[2023-12-09 23:22] LABS: Basophils # 0.1 K/mm3 (0-0.2); Basophils % 1.4 % (0.1-2.0); Eosinophils # 0.6 K/mm3 (0.0-0.4); Eosinophils % 7.2 % (0.1-12.0); Hematocrit 39.9 % (42.0-52.0); Hemoglobin 12.7 g/dL (14.1-18.0); Lymphocytes # 3.5 K/mm3 (0.7-4.5); Lymphocytes % 43.1 % (10-50); Mean Corpuscular Hemoglobin 30.1 pg (27.0-31.2); Mean Corpuscular Volume 94.3 fl (80-94); Mean Platelet Volume 7.4 fl (7.4-10.4); Monocytes # 0.6 K/mm3 (0.1-1.0); Monocytes % 7.1 % (1.7-9.3); Neutrophils # 3.4 K/mm3 (1.8-7.8); Neutrophils % 41.2 % (37.0-80.0); Platelet Count 319 K/mm3 (142-424); Red Blood Count 4.22 M/mm3 (4.60-6.20); Red Cell Distribution Width 13.3 % (11.5-17.5); White Blood Count 8.2 K/mm3 (4.8-10.8)
[2023-12-09] MEDS: ACETAMINOPHEN 500MG TAB 1000 MG PO (23:23)
[2023-12-09] MEDS: BELLADONNA ALKALOIDS 60 ML ML PO (23:23)
[2023-12-09 23:27] LABS: Alanine Aminotransferase 25 U/L (12-78); Albumin Level 4.2 g/dl (3.5-5.0); Albumin/Globulin Ratio 1.8 (1.1-1.8); Alkaline Phosphatase 65 U/L (38-126); Anion Gap 7.6 mEq/L (5-15); Aspartate Amino Transferase 35 U/L (17-59); Bilirubin,Total 0.4 mg/dl (0.2-1.3); Blood Urea Nitrogen 12 mg/dl (9-20); Calcium 8.6 mg/dl (8.4-10.2); Carbon Dioxide 29 mmol/L (22.0-30.0); Chloride 108 mmol/L (98-107); Creatinine Clearance Estimated 104 mL/min (50-200); Estimated Glomerular Filt Rate 114 ml/min (>60); GFR (African American) 137 ML/MIN (>60); Globulin 2.3 g/dL (1.3-3.2); Glucose 121 mg/dl (74-100); Potassium 3.6 mmoL/L (3.5-5.1); Sodium 141 mmol/L (136-145); Total Protein,Serum 6.5 g/dl (6.3-8.2)
[2023-12-09 23:30] VITALS: BP 125/75; PULSE 64; RESP 12; O2SAT 96
[2023-12-09 23:41] LABS: Troponin I < 0.01 ng/ml (0.00-0.034)
[2023-12-10] VITALS: BP 112/66; PULSE 65; RESP 14; O2SAT 97
--- NOTE | 2023-12-10 00:08 | HMH.EDGENADL ---
Discharge Plan Disposition Patient Disposition: Home, Self-Care Condition: Good Chief Complaint: Chest Pain Prescriptions Prescriptions: No Action buprenorphine-naloxone 1 EACH tablet, sublingual 2 each SL DAILY ondansetron 4 MG tablet,disintegrating 4 mg PO TIDP PRN (Reason: Nausea) Qty: 20 0RF cefdinir 250 MG/5 ML suspension for reconstitution 250 mg PO BID Qty: 14 0RF prednisone 20 mg tablet 40 mg PO BID 5 Days Qty: 20 0RF Referrals Follow up/Referrals: Provider,Referral, MD [Primary Care Provider] - See instructions Activity Restrictions/Add. Instructions Additional Instructions/Restrictions: Follow-up with your primary care doctor as scheduled. Return to the emergency department if worsening or persistent symptoms. Clinical Impressions Clinical Impression: Chest pain of unknown etiology Instructions Patient Instructions: DI for Atypical Chest Pain Discharge ED Provider: Kandice Wyatt General Adult HPI General Chief complaint: Chest Pain Stated complaint: Chest pain Time Seen by Provider: 12/09/23 23:15 Mode of Arrival: Ambulatory Source of Information: Patient Limitations: No Limitations Description of Symptoms (Recalled from ER Triage Doc. by RN): patient ambulatory to ED with complaints of right side chest pain that begain x2hrs ago. Denies SOA or radiating pain at this time. History of Present Illness HPI narrative: Xiang Shetty is a 32-year-old male with previous medical history of gastritis and Suboxone use presenting with right-sided chest pain since tonight. Shortly prior to arrival patient was at rest holding his daughter when he began to have sharp right-sided chest pain. It lasted a few minutes before subsiding for a few minutes and then returning again. It is since resolved and he now is asymptomatic but had been concerned by the pain so presented to the emergency department out of concern for possible heart problem or another cause. He has never had chest pain like this before . During the chest pain he had some possible shortness of breath and lightheadedness which has also resolved. Related Data Home Medications Medication Instructions Recorded Confirmed buprenorphine 8 mg-naloxone 2 mg 2 each SL DAILY Opiod addiction 11/10/21 11/10/21 sublingual tablet Previous Rx's Medication Instructions Recorded cefdinir 250 mg/5 mL oral 250 mg (5 mL) PO BID #14 mL 11/10/21 suspension ondansetron 4 mg disintegrating 4 mg PO TIDP PRN Nausea #20 tabs 11/10/21 tablet prednisone 20 mg tablet 40 mg PO BID 5 days #20 tabs 07/21/23 Allergies Allergy/AdvReac Type Severity Reaction Status Date / Time No Known Allergies Allergy Verified 09/03/20 16:32 [facility] Disclaimer: The information contained in this section may have been updated after the patient was seen, as this information can be updated by other users. Social History Smoking Status: Current every day smoker alcohol intake: current current occupational status: previously employed Travel in the last 8 weeks: None ROS Obtained: Yes All systems reviewed & no additional complaints except as documented Physical Exam General General appearance: alert and in no apparent distress Head Head exam: atraumatic, normocephalic and normal inspection Eye Eye exam: Present normal appearance, PERRL and EOMI ENT ENT exam: Present normal exam, normal oropharynx, mucous membranes moist and normal external ear exam Neck Neck exam: Present normal inspection, full ROM and trachea midline; Absent meningismus or lymphadenopathy Chest Chest inspection: Present normal inspection and symmetric chest wall rise; Absent tenderness Respiratory Respiratory exam: Present normal lung sounds bilaterally; Absent respiratory distress, wheezes, stridor or accessory muscle use Cardiovascular Cardiovascular exam: Present regular rate, normal rhythm and normal heart sounds; Absent irregular rhythm or JVD Abdominal Exam Abdominal exam: Present soft and normal bowel sounds; Absent distention, tenderness, guarding or Wyatt's sign Abdominal tenderness: Absent RUQ, RLQ, LUQ, LLQ or epigastrium Extremities Exam Extremities exam: Present normal inspection, full ROM and normal capillary refill; Absent calf tenderness Back Exam Back exam: Present normal inspection; Absent tenderness Neurological Exam Neurological exam: Present alert and oriented X3 Psychiatric Psychiatric exam: Present normal affect and normal mood Skin Skin exam: Present warm, dry, intact and normal color Lymphatic Lymphatic Findings: no adenopathy Medical Decision Making Medical Records Medical records reviewed: Yes I reviewed the patient's medical records. Dominik Inquiry Pt receiving controlled substance: No Vital Signs: 12/09/23 22:56 12/09/23 23:13 12/09/23 23:00 Temperature 98.4 F Temperature Source Oral Pulse Rate 70 74 Pulse Rate [Left] 82 Respiratory Rate 14 14 Blood Pressure 133/85 Blood Pressure [Right Arm] 135/87 Blood Pressure Mean 93 Blood Pressure Mean [Right Arm] 103 Blood Pressure Source [Right Arm] Automatic Cuff Blood Pressure Position [Right Arm] Sitting 02 Sat by Pulse Oximetry 96 98 Oxygen Delivery Method Room Air Room Air Lab Data Lab Results 12/09/23 23:01: WBC 8.2, RBC 4.22 L, Hgb 12.7 L, Hct 39.9 L, MCV 94.3 H, MCH 30.1, MCHC 32.0, RDW 13.3, Plt Count 319, MPV 7.4, Neut % (Auto) 41.2, Lymph % (Auto) 43.1, [place] % (Auto) 7.1, Eos % (Auto) 7.2, Baso % (Auto) 1.4, Neut # (Auto) 3.4, Lymph # (Auto) 3.5, [place] # (Auto) 0.6, Eos # (Auto) 0.6 H, Baso # (Auto) 0.1, Sodium 141, Potassium 3.6, Chloride 108 H, Carbon Dioxide 29, Anion Gap 7.6, BUN 12, Creatinine 0.80, Estimated Creat Clear 104, Estimated GFR 114, Est GFR ( Amer) 137, Glucose 121 H, Calcium 8.6, Total Bilirubin 0.4, AST 35, ALT 25, Alkaline Phosphatase 65, Troponin I < 0.01, Total Protein 6.5, Albumin 4.2, Globulin 2.3, Albumin/Globulin Ratio 1.8 12/09/23 23:01 12/09/23 23:01 Orders (Tests/Meds): ED MEDICATIONS Discontinued Medications Generic Name Dose Route Start Last Admin Trade Name Freq PRN Reason Stop Dose Admin Acetaminophen 1,000 mg 12/09/23 23:15 12/09/23 23:23 Acetaminophen 500mg Tab PO 12/09/23 23:16 1,000 mg ONCE ONE Administration Belladonna Alkaloids 60 ml 12/09/23 23:15 12/09/23 23:23 [place]onna Alkaloids 60 Ml Ml PO 12/09/23 23:16 60 ml ONCE ONE Administration ORDERS Category Date Time Status Chest XR 2 view (NOT portable) [XR chest 2V] Stat Exams 12/09/23 23:16 Taken CBC [Complete Blood Count Auto Diff] Stat Lab 12/09/23 23:01 Completed CMP [Comprehensive Metabolic Panel] Stat Lab 03/02/24 23:01 Completed Trop I [Troponin I] Stat Lab 12/09/23 23:01 Completed Troponin I Q3H Lab 12/10/23 02:30 Ordered Troponin I Q3H Lab 12/10/23 05:30 Ordered ECG Data Tracing #1: I reviewed this ECG and interpreted as documented below: Normal rate, regular rhythm, no significant ST segment elevation, normal sinus rhythm. ECG initial impression date: 12/09/23 ECG initial impression time: 22:59 ECG normal with no acute: arrhythmias, ischemia, conduction abnormalities, chamber hypertrophy HEART Score History (anamnesis): Slightly suspicious ECG: Non-specific disturbance Age: <45 years Risk factors: 1-2 risk factors Troponin: </= normal limit HEART Score: 2 Medical Decision Narrative: Patient was immediately evaluated upon arrival and determined to be hemodynamically stable. He was asymptomatic. No nitroglycerin or aspirin was not indicated at this time. Presentation was concerning for ACS, pneumothorax, pneumonia, pleuritis, less likely pericarditis, and patient had pulmonary embolism rule out criteria negative so exceedingly unlikely to have a pulmonary embolism. For this reason obtained EKG which I independently reviewed and interpreted as above undetermined showed normal sinus rhythm. Obtained CBC, CMP, troponin and chest x-ray. Independently reviewed and interpreted labs which were significant for only mild anemia, normal CMP and normal troponin. Chest x-ray independently reviewed and interpreted showed no pneumothorax, focal consolidations, or other concerns to explain his chest pain. Heart score is 2. Discussed with patient that at this time is unclear what caused his chest pain however he seems to have no life-threatening causes that are likely to have triggered his chest pain. Patient currently has a primary care appointment set up for December 19 but provided return precautions and instructions for caring for his symptoms at home and discharged while asymptomatic and hemodynamically stable. Critical Care Critical Care Time Critical Care Time: No
[2023-12-10 00:30] VITALS: BP 115/69; PULSE 58; RESP 12; O2SAT 96
[2023-12-10 01:08] VITALS: BP 102/66; PULSE 59; RESP 12; TEMP 36.9; O2SAT 98
== END 2023-12-10 01:09 | disposition home or self-care (01) ==
PROVIDERS: Emergency Provider Emergency Medicine; PCP General Practice
DX: R07.9 Chest pain, unspecified (principal); F17.200 Nicotine dependence, unspecified, uncomplicated
CPT/HCPCS: 71046; 80053; 84484; 85025; 93005; 99285

== ENCOUNTER 2024-02-06 18:00 | Outpatient (CLI) | payer MEDICAID, SELFPAY ==
[2024-02-06 19:41] LABS: 25-OH Vitamin D, Total 34.5 ng/mL (30-100)
[2024-02-06 20:02] LABS: Hemoglobin A1C 5.5 % (4.0-6.0)
[2024-02-06 20:28] LABS: Folate 7.74 ng/mL; Vitamin B12 653 pg/mL (239-931)
[2024-02-06 22:01] LABS: Iron 127 ug/dL (49-181)
[2024-02-06 22:10] LABS: Total Iron Binding Capacity 251 ug/dL (261-462)
[2024-02-06 22:37] LABS: Ferritin 80.8 ng/ml (17.9-464)
== END 2024-02-06 23:59 | disposition home or self-care (01) ==
LOC: LAB.DROPOF 02-07 10:56
PROVIDERS: PCP Student in an Organized Health Care Education/Training Program; Visit Provider Student in an Organized Health Care Education/Training Program
DX: D64.9 Anemia, unspecified (principal); Z13.21 Encounter for screening for nutritional disorder; Z13.29 Encounter for screening for other suspected endocrine disorder; Z13.1 Encounter for screening for diabetes mellitus
CPT/HCPCS: 82306; 82607; 82728; 82746; 83036; 83540; 83550; 84443

== ENCOUNTER 2024-03-27 10:20 | Outpatient (CLI) | payer MEDICAID, SELFPAY ==
[2024-03-28 09:33] LABS: HIV (1&2) Antibody Rapid NON REACTIVE
[2024-03-29 08:22] LABS: HCV Ab Non Reactive (Non Reactive)
== END 2024-03-27 23:59 | disposition home or self-care (01) ==
LOC: LAB.DROPOF 03-28 10:21
PROVIDERS: PCP Nurse Practitioner Family; Visit Provider Nurse Practitioner Family
DX: L81.8 Other specified disorders of pigmentation (principal); F19.90 Other psychoactive substance use, unspecified, uncomplicated; R10.84 Generalized abdominal pain

== ENCOUNTER 2024-08-05 14:25 | Outpatient (CLI) | payer MEDICAID, SELFPAY ==
[2024-08-05 18:35] LABS: Basophils # 0.1 K/mm3 (0-0.2); Basophils % 0.7 % (0.1-2.0); Eosinophils # 0.3 K/mm3 (0.0-0.4); Eosinophils % 3.4 % (0.1-12.0); Hematocrit 45.6 % (42.0-52.0); Hemoglobin 14.9 g/dL (14.1-18.0); Lymphocytes # 2.1 K/mm3 (0.7-4.5); Lymphocytes % 26.1 % (10-50); Mean Corpuscular HGB Conc 32.7 g/dL (31.8-35.4); Mean Corpuscular Hemoglobin 30.4 pg (27.0-31.2); Mean Platelet Volume 7.5 fl (7.4-10.4); Monocytes # 0.3 K/mm3 (0.1-1.0); Monocytes % 4.3 % (1.7-9.3); Neutrophils # 5.2 K/mm3 (1.8-7.8); Neutrophils % 65.5 % (37.0-80.0); Platelet Count 373 K/mm3 (142-424); Red Blood Count 4.91 M/mm3 (4.60-6.20); Red Cell Distribution Width 13.4 % (11.5-17.5); White Blood Count 7.9 K/mm3 (4.8-10.8)
[2024-08-05 18:55] LABS: Alanine Aminotransferase 18 U/L (12-78); Albumin Level 4.7 g/dl (3.5-5.0); Alkaline Phosphatase 74 U/L (38-126); Anion Gap 18.3 mEq/L (5-15); Aspartate Amino Transferase 31 U/L (17-59); Bilirubin,Total 0.5 mg/dl (0.2-1.3); Blood Urea Nitrogen 15 mg/dl (9-20); Calcium 9.5 mg/dl (8.4-10.2); Carbon Dioxide 28 mmol/L (22.0-30.0); Chloride 100 mmol/L (98-107); Estimated Glomerular Filt Rate 113 ml/min (>60); GFR (African American) 136 ML/MIN (>60); Globulin 2.4 g/dL (1.3-3.2); Glucose 81 mg/dl (74-100); Potassium 4.3 mmoL/L (3.5-5.1); Sodium 142 mmol/L (136-145); Total Protein,Serum 7.1 g/dl (6.3-8.2)
[2024-08-05 19:30] LABS: Thyroid Stimulating Hormone 1.08 uIU/mL (0.465-4.68)
[2024-08-05 20:05] LABS: Vitamin B12 609 pg/mL (239-931)
[2024-08-05 20:21] LABS: Folate 4.73 ng/mL
[2024-08-05 21:47] LABS: Iron 115 ug/dL (49-181)
[2024-08-05 21:56] LABS: Total Iron Binding Capacity 252 ug/dL (261-462)
== END 2024-08-05 23:59 | disposition home or self-care (01) ==
LOC: LAB.DROPOF 08-06 15:21
PROVIDERS: PCP Student in an Organized Health Care Education/Training Program; Visit Provider Student in an Organized Health Care Education/Training Program
DX: R51.9 Headache, unspecified (principal); D64.9 Anemia, unspecified; Z13.29 Encounter for screening for other suspected endocrine disorder
CPT/HCPCS: 80050; 80053; 82607; 82728; 82746; 83540; 83550; 83735; 84443; 85025

== ENCOUNTER 2024-08-10 20:33 | Emergency (ER) | payer MEDICAID, SELFPAY ==
[2024-08-10 20:33] VITALS: BP 132/98; PULSE 85; RESP 15; TEMP 36.8; O2SAT 100; BMI 18.6
--- NOTE | 2024-08-10 20:35 | ED_ITS ---
Discharge Plan Disposition Patient Disposition: Home, Self-Care Prescriptions Prescriptions: No Action polyethylene glycol 3350 [Miralax] 17 gram/dose powder 17 g PO BID Qty: 510 5RF Rx Instructions: 1 capful BID until BM produced. Then decrease to 1 capful daily. Ubrelvy 100 mg tablet 100 mg PO ONCE buprenorphine-naloxone 1 EACH tablet, sublingual 2 each sublingual DAILY topiramate 25 mg tablet 25 mg PO DAILY Patient Comments: TAKE 1 TABLET BY MOUTH DAILY Nurtec ODT 75 mg tablet,disintegrating 75 mg PO DIRECTED Patient Comments: DISSOLVE 1 TABLET ON THE TONGUE 1 TIME NEEDED FOR MIGRAINE HEADACHE Referrals Follow up/Referrals: Provider,Referral, MD [Referring] - See instructions Activity Restrictions/Add. Instructions Additional Instructions/Restrictions: No evidence of any acute cardiopulmonary emergency please follow-up with your primary care doctor and return with any significant worsening symptoms Clinical Impressions Clinical Impression: Atypical chest pain Print Language Print Language: Peruvian Discharge ED Provider: Mihai Person [facility] <JOSH Andrade - Last Filed: 08/10/24 21:35> General Chief Complaint: Chest Pain Stated Complaint: chest pain Time Seen by Provider: 08/10/24 20:35 Description of Symptoms (Recalled from ER Triage Doc. by RN): Patient presents for evaluation of chest pain. Patient states he woke up with chest pain this morning but eventually it went away and so he decided to ignore it. However he was at an event this evening and it came back. He was not doing anything specifically physical. Patient has had intermittent chest pain previously but is all been on the right side of his chest. This is his first left-sided chest pain. He does have a history of substance abuse but has been longtime sober maintained on Suboxone therapy. He does have a history of a heart murmur and a family history of ischemic heart disease before age 50 and to that end he was evaluated by cardiology on 08 August. Further testing is planned but obviously has not been done yet. Currently denies fever chills hemoptysis hematochezia melena nausea vomit diarrhea. Currently he rates his pain as a 3 out of 10 but was much worse earlier today. Related Data Home Medications ?Medication ?Instructions ?Recorded ?Confirmed buprenorphine 8 mg-naloxone 2 mg 2 each sublingual DAILY Opiod 11/10/21 08/10/24 sublingual tablet addiction ubrogepant 100 mg tablet (Ubrelvy) 100 mg PO ONCE 08/08/24 08/10/24 rimegepant 75 mg disintegrating 75 mg PO DIRECTED 08/10/24 08/10/24 tablet (Nurtec ODT) topiramate 25 mg tablet 25 mg PO DAILY 08/10/24 08/10/24 Previous Rx's ?Medication ?Instructions ?Recorded polyethylene glycol 3350 17 17 g PO BID #510 grams 07/03/24 gram/dose oral powder (Miralax) Allergies Allergy/AdvReac Type Severity Reaction Status Date / Time Sulfa (Sulfonamide AdvReac Rash Verified 08/08/24 13:25 Antibiotics) [facility] <JOSH Andrade - Last Filed: 08/10/24 21:35> [facility] Disclaimer: The information contained in this section may have been updated after the patient was seen, as this information can be updated by other users. Medical History (Updated 08/10/24 @ 23:13 by Mihai Person MD) Vapes nicotine containing substance Abnormal electrocardiogram [ECG] [EKG] Encounter for removal of sutures Laceration of right forearm IV drug user Atypical chest pain Gastroenteritis Acute medial meniscal tear Hand trauma Skin tear of left hand without complication Surgical History No significant past surgical history Family History Other No significant family history Social History Smoking Status: Current every day smoker tobacco type: e-cigarettes alcohol intake: never substance use type: former substance user, crack/cocaine, heroin and IV drugs current occupational status: previously employed Travel in the last 8 weeks: None Other Medical History Have you received the Flu Vaccine for this season: No Have you received the Pneumonia Vaccine: No <JOSH Andrade - Last Filed: 08/10/24 21:35> ROS Obtained: Yes Systems reviewed as appropriate & no additional complaints except as documented Physical Exam <JOSH Andrade - Last Filed: 08/10/24 21:35> General General appearance: alert and in no apparent distress Respiratory Respiratory exam: Present normal lung sounds bilaterally Cardiovascular Cardiovascular exam: Present regular rate Neurological Exam Neurological exam: Present alert and oriented X3 HEART Score <JOSH Andrade - Last Filed: 08/10/24 21:35> HEART Score HEART Score assessment performed?: Yes History (anamnesis): Slightly suspicious ECG: Normal Age: <45 years Risk factors: 1-2 risk factors Troponin: </= normal limit HEART Score: 1 <Mihai Person MD - Last Filed: 08/10/24 23:15> HEART Score HEART Score: 1 Critical Care <JOSH Andrade - Last Filed: 08/10/24 21:35> Critical Care Time Critical Care Time: No Medical Decision Making <JOSH Andrade - Last Filed: 08/10/24 21:35> Medical Records Medical records reviewed: Yes I reviewed the patient's medical records. Dominik Inquiry Pt receiving controlled substance: No Vital Signs Vital Signs: 08/10/24 20:33 08/10/24 21:00 08/10/24 21:30 Temperature 98.2 F Temperature Source Oral Pulse Rate 67 62 Pulse Rate [Right] 85 Respiratory Rate 15 12 12 Blood Pressure 119/88 123/93 H Blood Pressure [Right Arm] 132/98 H Blood Pressure Mean [Right Arm] 109 Blood Pressure Source Blood Pressure Source [Right Arm] Automatic Cuff 02 Sat by Pulse Oximetry 100 99 97 Oxygen Delivery Method Room Air Room Air Room Air 08/10/24 22:00 08/10/24 22:30 08/10/24 23:08 Temperature 98.2 F Temperature Source Oral Pulse Rate 52 L 47 L 56 L Pulse Rate [Right] Respiratory Rate 12 13 13 Blood Pressure 108/81 L 106/82 L 108/81 L Blood Pressure [Right Arm] Blood Pressure Mean [Right Arm] Blood Pressure Source Automatic Cuff Blood Pressure Source [Right Arm] 02 Sat by Pulse Oximetry 97 100 Oxygen Delivery Method Room Air Room Air Room Air Lab Data Lab results reviewed: Yes I reviewed the patient's lab results. Labs: Lab Results 08/10/24 20:36: WBC 6.8, RBC 4.81, Hgb 14.5, Hct 43.2, MCV 89.8, MCH 30.1, MCHC 33.5, RDW 13.3, Plt Count 349, MPV 7.1 L, Neut % (Auto) 47.4, Lymph % (Auto) 41.0, [place] % (Auto) 5.7, Eos % (Auto) 4.4, Baso % (Auto) 1.6, Neut # (Auto) 3.2, Lymph # (Auto) 2.8, [place] # (Auto) 0.4, Eos # (Auto) 0.3, Baso # (Auto) 0.1, PT 10.5, INR 0.93, Sodium 140, Potassium 4.0, Chloride 104, Carbon Dioxide 28, Anion Gap 12.0, BUN 15, Creatinine 1.00, Estimated GFR 87, Est GFR ( Amer) 105, Glucose 109 H, Calcium 9.2, Magnesium 2.4 H, Total Bilirubin 0.4, AST 37, ALT 19, Alkaline Phosphatase 84, Troponin I < 0.01, NT-Pro-B Natriuret Pep < 20.0, Total Protein 8.6 H, Albumin 5.3 H, Globulin 3.3 H, Albumin/Globulin Ratio 1.6, Lipase 54, TSH 1.97, Free T4 Index 1.9 L, Thyroxine (T4) 7.0, T3 Uptake 27 08/10/24 21:45: SARS-CoV-2 (PCR) Not detected, Influenza A Untype (PCR) Not detected, Influenza Type B (PCR) Not detected 08/10/24 22:27: Troponin I < 0.01 08/10/24 20:36 08/10/24 20:36 Response Orders (Tests/Meds): ED MEDICATIONS Discontinued Medications Generic Name Dose Route Start Last Admin Trade Name Freq PRN Reason Stop Dose Admin Acetaminophen 1,000 mg 08/10/24 20:43 08/10/24 20:53 Acetaminophen 500mg Tab PO 08/10/24 20:44 1,000 mg ONCE ONE Administration Belladonna Alkaloids 60 ml 08/10/24 20:43 08/10/24 20:53 Belladonna Alkaloids 60 Ml Ml PO 08/10/24 20:44 60 ml ONCE ONE Administration Ketorolac Tromethamine 15 mg 08/10/24 20:43 08/10/24 20:53 Ketorolac 30mg/Ml Vial IV 08/10/24 20:44 15 mg ONCE ONE Administration ORDERS Category Date Time Status Consult Guest Request Runner [CONS] Routine Cons 08/10/24 21:35 Active Chest XR -- portable [XR chest portable] Stat Exams 08/10/24 21:01 Completed BNP [NT Pro Brain Natriuretic Pep.] Stat Lab 08/10/24 20:36 Completed CBC w/Auto Diff [Complete Blood Count Auto Diff] Stat Lab 08/10/24 20:36 Completed CMP [Comprehensive Metabolic Panel] Stat Lab 08/10/24 20:36 Completed HIV (1&2) Antibody Rapid Stat Lab 08/10/24 20:36 Received Hep C Ab with Reflex to RNA Stat Lab 08/10/24 20:36 Received INR [Prothrombin Time INR] Stat Lab 08/10/24 20:36 Completed Lipase Stat Lab 08/10/24 20:36 Completed Magnesium Stat Lab 08/10/24 20:36 Completed Rapid PCR Covid and Flu A/B Stat Lab 08/10/24 21:45 Completed Thyroid Panel Stat Lab 08/10/24 20:36 Completed Trop I [Troponin I] Stat Lab 08/10/24 20:36 Completed Troponin I Q3H Lab 08/10/24 22:27 Completed Troponin I Q3H Lab 08/11/24 01:45 Ordered MDM Narrative Medical Decision Narrative: In summary patient is a 33-year-old male who presents to the emergency department for evaluation of chest pain. Patient is hemodynamically stable upon arrival, afebrile. Exam is remarkable for nonreproducible chest pain on palpation. Breath sounds are clear and equal bilaterally to the bases. I am unable to appreciate a murmur. Heart sounds are normal. No epigastric or abdominal pain with no rebound or guarding no rigidity and normal bowel sounds.. Differential diagnosis includes ACS versus muscle spasm versus gastrointestinal cause etc. Initial workup will be conducted with hematologic labs plain film chest x-ray twelve-lead EKG. Initial interventions include Toradol Tylenol. Initial workup reviewed by me shows his hematologic labs are nonactionable and his troponin is undetectable. My informal interpretation is plain film chest x- ray shows no acute processes.. The patient was placed in observation status at 2130. Medical necessity for observational status is serial troponins. The patient was provided serial reevaluations continuous cardiac monitoring and pulse oximetry while awaiting results. Case handed off to Dr. Faith at 2300 hrs. <Mihai Person MD - Last Filed: 08/10/24 23:15> Vital Signs Vital Signs: 08/10/24 20:33 08/10/24 21:00 08/10/24 21:30 Temperature 98.2 F Temperature Source Oral Pulse Rate 67 62 Pulse Rate [Right] 85 Respiratory Rate 15 12 12 Blood Pressure 119/88 123/93 H Blood Pressure [Right Arm] 132/98 H Blood Pressure Mean [Right Arm] 109 Blood Pressure Source Blood Pressure Source [Right Arm] Automatic Cuff 02 Sat by Pulse Oximetry 100 99 97 Oxygen Delivery Method Room Air Room Air Room Air 08/10/24 22:00 08/10/24 22:30 08/10/24 23:08 Temperature 98.2 F Temperature Source Oral Pulse Rate 52 L 47 L 56 L Pulse Rate [Right] Respiratory Rate 12 13 13 Blood Pressure 108/81 L 106/82 L 108/81 L Blood Pressure [Right Arm] Blood Pressure Mean [Right Arm] Blood Pressure Source Automatic Cuff Blood Pressure Source [Right Arm] 02 Sat by Pulse Oximetry 97 100 Oxygen Delivery Method Room Air Room Air Room Air Lab Data Lab results reviewed: Yes I reviewed the patient's lab results. Labs: Lab Results 08/10/24 20:36: WBC 6.8, RBC 4.81, Hgb 14.5, Hct 43.2, MCV 89.8, MCH 30.1, MCHC 33.5, RDW 13.3, Plt Count 349, MPV 7.1 L, Neut % (Auto) 47.4, Lymph % (Auto) 41.0, [place] % (Auto) 5.7, Eos % (Auto) 4.4, Baso % (Auto) 1.6, Neut # (Auto) 3.2, Lymph # (Auto) 2.8, [place] # (Auto) 0.4, Eos # (Auto) 0.3, Baso # (Auto) 0.1, PT 10.5, INR 0.93, Sodium 140, Potassium 4.0, Chloride 104, Carbon Dioxide 28, Anion Gap 12.0, BUN 15, Creatinine 1.00, Estimated GFR 87, Est GFR ( Amer) 105, Glucose 109 H, Calcium 9.2, Magnesium 2.4 H, Total Bilirubin 0.4, AST 37, ALT 19, Alkaline Phosphatase 84, Troponin I < 0.01, NT-Pro-B Natriuret Pep < 20.0, Total Protein 8.6 H, Albumin 5.3 H, Globulin 3.3 H, Albumin/Globulin Ratio 1.6, Lipase 54, TSH 1.97, Free T4 Index 1.9 L, Thyroxine (T4) 7.0, T3 Uptake 27 08/10/24 21:45: SARS-CoV-2 (PCR) Not detected, Influenza A Untype (PCR) Not detected, Influenza Type B (PCR) Not detected 08/10/24 22:27: Troponin I < 0.01 Response Orders (Tests/Meds): ED MEDICATIONS Discontinued Medications Generic Name Dose Route Start Last Admin Trade Name Charles PRN Reason Stop Dose Admin Acetaminophen 1,000 mg 08/10/24 20:43 08/10/24 20:53 Acetaminophen 500mg Tab PO 08/10/24 20:44 1,000 mg ONCE ONE Administration Belladonna Alkaloids 60 ml 08/10/24 20:43 08/10/24 20:53 Belladonna Alkaloids 60 Ml Ml PO 08/10/24 20:44 60 ml ONCE ONE Administration Ketorolac Tromethamine 15 mg 08/10/24 20:43 08/10/24 20:53 Ketorolac 30mg/Ml Vial IV 08/10/24 20:44 15 mg ONCE ONE Administration ORDERS Category Date Time Status Consult Guest Request Runner [CONS] Routine Cons 08/10/24 21:35 Active Chest XR -- portable [XR chest portable] Stat Exams 08/10/24 21:01 Completed BNP [NT Pro Brain Natriuretic Pep.] Stat Lab 08/10/24 20:36 Completed CBC w/Auto Diff [Complete Blood Count Auto Diff] Stat Lab 08/10/24 20:36 Completed CMP [Comprehensive Metabolic Panel] Stat Lab 08/10/24 20:36 Completed HIV (1&2) Antibody Rapid Stat Lab 08/10/24 20:36 Received Hep C Ab with Reflex to RNA Stat Lab 08/10/24 20:36 Received INR [Prothrombin Time INR] Stat Lab 08/10/24 20:36 Completed Lipase Stat Lab 08/10/24 20:36 Completed Magnesium Stat Lab 08/10/24 20:36 Completed Rapid PCR Covid and Flu A/B Stat Lab 08/10/24 21:45 Completed Thyroid Panel Stat Lab 08/10/24 20:36 Completed Trop I [Troponin I] Stat Lab 08/10/24 20:36 Completed Troponin I Q3H Lab 08/10/24 22:27 Completed Troponin I Q3H Lab 08/11/24 01:45 Ordered MDM Narrative Medical Decision Narrative: In summary patient is a 33-year-old male who presents to the emergency department for evaluation of chest pain. Patient is hemodynamically stable upon arrival, afebrile. Exam is remarkable for nonreproducible chest pain on palpation. Breath sounds are clear and equal bilaterally to the bases. I am unable to appreciate a murmur. Heart sounds are normal. No epigastric or abdominal pain with no rebound or guarding no rigidity and normal bowel sounds.. Differential diagnosis includes ACS versus muscle spasm versus gastrointestinal cause etc. Initial workup will be conducted with hematologic labs plain film chest x-ray twelve-lead EKG. Initial interventions include Toradol Tylenol. Initial workup reviewed by me shows his hematologic labs are nonactionable and his troponin is undetectable. My informal interpretation is plain film chest x- ray shows no acute processes.. The patient was placed in observation status at 2130. Medical necessity for observational status is serial troponins. The patient was provided serial reevaluations continuous cardiac monitoring and pulse oximetry while awaiting results. Case handed off to Dr. Faith at 2300 hrs. Reassessment 1114 serial troponins are normal reassessment of the patient clinically patient looks very well symptoms are resolved heart score is very low he is essentially asymptomatic vomiting discharged without any concern at this point of acute cardiopulmonary emergency ACS has been ruled out. He has been advised to follow-up with primary care doctor as needed.
--- NOTE | 2024-08-10 20:40 | ECG_ITS ---
APPROVED REPORT Exam: Resting ECG HR:68 bpm ECG Measurements Heart Rate 68 AXES ID 138 P 77 QRSd 100 QRS 85 QT 396 T 68 QTc 413 Conclusion SINUS RHYTHM POSSIBLE RIGHT VENTRICULAR CONDUCTION DELAY [RSR (QR) IN V1/V2] BORDERLINE ECG UNCONFIRMED REPORT Electronically signed by : Dex Person, 08/10/2024 23:21:28
[2024-08-10 20:52] LABS: Basophils # 0.1 K/mm3 (0-0.2); Basophils % 1.6 % (0.1-2.0); Eosinophils # 0.3 K/mm3 (0.0-0.4); Eosinophils % 4.4 % (0.1-12.0); Hematocrit 43.2 % (42.0-52.0); Hemoglobin 14.5 g/dL (14.1-18.0); Lymphocytes # 2.8 K/mm3 (0.7-4.5); Mean Corpuscular HGB Conc 33.5 g/dL (31.8-35.4); Mean Corpuscular Hemoglobin 30.1 pg (27.0-31.2); Mean Corpuscular Volume 89.8 fl (80-94); Mean Platelet Volume 7.1 fl (7.4-10.4); Monocytes # 0.4 K/mm3 (0.1-1.0); Monocytes % 5.7 % (1.7-9.3); Neutrophils # 3.2 K/mm3 (1.8-7.8); Neutrophils % 47.4 % (37.0-80.0); Platelet Count 349 K/mm3 (142-424); Red Blood Count 4.81 M/mm3 (4.60-6.20); Red Cell Distribution Width 13.3 % (11.5-17.5); White Blood Count 6.8 K/mm3 (4.8-10.8)
[2024-08-10 20:53] LABS: Albumin Level 5.3 g/dl (3.5-5.0); Chloride 104 mmol/L (98-107); Sodium 140 mmol/L (136-145)
[2024-08-10] MEDS: BELLADONNA ALKALOIDS 60 ML ML PO (20:53)
[2024-08-10] MEDS: ACETAMINOPHEN 500MG TAB 1000 MG PO (20:53)
[2024-08-10] MEDS: KETOROLAC 30MG/ML VIAL 15 MG IV (20:53)
[2024-08-10 20:56] LABS: Alanine Aminotransferase 19 U/L (12-78); Albumin/Globulin Ratio 1.6 (1.1-1.8); Alkaline Phosphatase 84 U/L (38-126); Aspartate Amino Transferase 37 U/L (17-59); Bilirubin,Total 0.4 mg/dl (0.2-1.3); Blood Urea Nitrogen 15 mg/dl (9-20); Calcium 9.2 mg/dl (8.4-10.2); Carbon Dioxide 28 mmol/L (22.0-30.0); Estimated Glomerular Filt Rate 87 ml/min (>60); GFR (African American) 105 ML/MIN (>60); Globulin 3.3 g/dL (1.3-3.2); Glucose 109 mg/dl (74-100); Total Protein,Serum 8.6 g/dl (6.3-8.2)
[2024-08-10 20:58] LABS: INR 0.93 (0.9-1.1); Prothrombin Time 10.5 seconds (10.1-12.5)
[2024-08-10 21:00] VITALS: BP 119/88; PULSE 67; RESP 12; O2SAT 99
--- NOTE | 2024-08-10 21:01 | XR_ITS ---
PROCEDURE INFORMATION: Exam: XR Chest Exam date and time: 08/10/2024 9:02 PM Age: 33 years old Clinical indication: Pain; Left-sided; Additional info: Left-sided chest pain TECHNIQUE: Imaging protocol: Radiologic exam of the chest. Views: 1 view. COMPARISON: CR XR CHEST 2V 11/11/2023 23:28 FINDINGS: Lungs: Unremarkable. No consolidation. Pleural spaces: Unremarkable. No pleural effusion. No pneumothorax. Heart/Mediastinum: Unremarkable. No cardiomegaly. Bones/joints: Unremarkable. IMPRESSION: No acute findings.
[2024-08-10 21:14] LABS: Lipase 54 U/L (23-300); Magnesium 2.4 mg/dl (1.6-2.3)
[2024-08-10 21:23] LABS: NT Pro Brain Natriuretic Pep. < 20.0 pg/mL (0-125)
[2024-08-10 21:29] LABS: Troponin I < 0.01 ng/ml (0.00-0.034)
[2024-08-10 21:30] VITALS: BP 123/93; PULSE 62; RESP 12; O2SAT 97
[2024-08-10 21:32] LABS: Free Thyroxine Index 1.9 ug/dL (5.93-13.13); Triiodothryronine (T3) Uptake 27 % (23.5-40.5)
[2024-08-10 21:46] LABS: Thyroid Stimulating Hormone 1.97 uIU/mL (0.465-4.68)
[2024-08-10 21:49] LABS: Coronavirus 19, PCR Not Detected (NotDetected); Influenza A, PCR Not Detected (NotDetected); Influenza B, PCR Not Detected (NotDetected)
[2024-08-10 22:00] VITALS: BP 108/81; PULSE 52; RESP 12; O2SAT 97
--- NOTE | 2024-08-10 22:26 | PEERSUPPORT ---
Peer Support Note Patient Information Patient Information: DOS:08/10/2024 ? Reason: Hx of OUD/Ps Consult ? 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 He says a few days ago by heart doctor Chanell Guillen, he does have a heart murmur and ever since it's as if his chest pains have been worse along with the headaches. Headaches that will not go away, feeling as if something is growing in my head . He sometimes has to leave work and go home to lay down. ? He is waiting for Chanell Sweeney office to call him with an appointment to another specialist for further test that is covered by his insurance. ? Ps explores actions that help him when he has chest pains. -Setting or laying down -Deep breathing exercises -Going to the doctor, or ER ( this is the first time he has come to ER for chest pains) ? Ps provides positive support, offering support ongoing while in ED. Pt states no needs at this time. ? Thank you for allowing [facility] to assist in caring for the patient! ?
[2024-08-10 22:30] VITALS: BP 106/82; PULSE 47; RESP 13; O2SAT 100
[2024-08-10 23:06] LABS: Troponin I < 0.01 ng/ml (0.00-0.034)
[2024-08-10 23:08] VITALS: BP 108/81; PULSE 56; RESP 13; TEMP 36.8; O2SAT 98
--- NOTE | 2024-08-10 23:12 | PC.NURSE ---
Dr. Person at bedside discussing d/c info & results.
[2024-08-11 00:55] LABS: HIV (1&2) Antibody Rapid NONREACTIVE (NONREACTIVE)
[2024-08-13 05:10] LABS: HCV Ab Non Reactive (Non Reactive)
== END 2024-08-10 23:25 | disposition home or self-care (01) ==
PROVIDERS: Physician Assistant; Emergency Provider Student in an Organized Health Care Education/Training Program; PCP Family Medicine
DX: R07.89 Other chest pain (principal); R07.9 Chest pain, unspecified
CPT/HCPCS: 71045; 80050; 80053; 83690; 83735; 83880; 84436; 84443; 84479; 84484; 85025; 85610; 86803; 87389; 87636; 93005; 96374; 99284; J1885

== ENCOUNTER 2024-08-22 08:05 | Outpatient (CLI) | payer MEDICAID, SELFPAY ==
--- NOTE | 2024-08-22 | CA_ITS ---
APPROVED REPORT Exam: Exercise Treadmill Technologist: Vonda Beavers Ht: 5 ft 6 in Wt: 115 lbs BSA: 1.58 m2 HR: 61 bpm BP: 119/85 mmHg Rhythm: Nsr, rightward axis Medical History Medical History: Smoking Medications: Naloxone, Ubrelvy, Topiramate Allergies: Sulfa Cardiac Risk Factors: FHX of CAD, Smoking Stress Test Details Test: Exercise stress testing was performed using a modified Aman protocol. HR Resting HR: 61 bpm Max Heart Rate (APMHR): 189.915282 bpm Max HR Achieved: 189 bpm Target HR (85% APMHR): 160.261144 bpm % of APMHR: 100.00 Recovery HR: 87 bpm BP Resting BP: 119.0/85.0 mmHg Max BP: 177.0/100.0 mmHg Recovery BP: 122.0/83.0 mmHg ECG Resting ECG: Nsr, rightward axis Stress ECG Conclusion Pt exercised 12:40 on Aman protocol Max HR: 189 % of PM: 100% Max BP: 177/100 Mets: 13.3 Test stopped due to: soa, fatigue No cp Allowing for motion artifact, the ST response to exercise is within normal Normal GXT GXT only (no imaging) Electronically signed by : Selma Hoover MD 08/26/2024 01:36:53
--- NOTE | 2024-08-22 08:11 | CA_ITS ---
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 Driver: Valerie Wang CRT Ht: 5 ft 6 in Wt: 115lbs BSA: 1.58 BP: 139/98 mmHg Indications: murmur, CP, smoker, VIRK, hx of drug abuse(last used 2015), abn EKG 2D Dimensions Left Atrium 3.36 cm M: 3.0 - 4.0 LA Volume 15.20 mL LVOT 2.07 cm (M/F) 1.5-2.5 LA Volume Index 9.62 mL/m2 (M/F) 16-34 EF AP4 54.20 % GL Strain -18.6 % M-Mode Dimensions RVDd 2.75 cm (0.9-2.6) LVDd 4.75 cm (3.5-5.7) Ao Diam 4.33 cm (2.0-3.7) LVDs 3.13 cm (3.5-5.7) IVSd 0.70 cm (0.6-1.1) PWd 0.81 cm (0.6-1.1) EF (Teich) 63.00% FS 34.10% EDV (Teich) 104.90 mL TAPSE 1.98 (<1.7) ESV (Teich) 38.80 mL LV Diastology E Decel Time 233 (160-240 msec) E/A Ratio 1.6 MED E' 12.1 (>= 7 cm/sec) MED A' 6.00 cm/s E'/MED E' Ratio 5.56 (<= 14) LAT E' 11.4 (>= 10 cm/sec) LAT A' 5.50 cm/s E/LAT E' Ratio 5.90 (<= 14) Aortic Valve AoV Peak Karthik. 81.0 (50-130 cm/s) AO Peak GR. 2.60 mmHg Mitral Valve MV E Max Karthik. 67.0 (40-130 cm/s) MV A Velocity 43.0 (40-130 cm/s) E/A Ratio 1.56 MV Decel. Time 233 (160-240 ms) Tricuspid Valve TR P. Velocity 188.00 cm/s RAP Estimate 10.00 mmHg RVSP 24.10 mmHg Left Ventricle The left ventricle is normal size. The left ventricular systolic function is normal. The left ventricular ejection fraction is within the normal range. There is normal left ventricular wall thickness. There is normal LV segmental wall motion. The left ventricular diastolic function is normal. LVEF is 55%. Right Ventricle The right ventricle is normal size. The right ventricular systolic function is normal. Atria The left atrium size is normal. The right atrium size is normal. There is no Doppler evidence of interatrial shunt. Aortic Valve The aortic valve opens well. There is no aortic valvular stenosis. No aortic regurgitation is present. Mitral Valve The mitral valve is normal in structure. No evidence of mitral valve stenosis. There is no mitral valve regurgitation noted. Tricuspid Valve Radiographs of the left foot are thin and pliable. Trace tricuspid regurgitation. There is insufficient TR jet to estimate RVSP. Pulmonic Valve The pulmonary valve is normal in structure. Trace pulmonic regurgitation. Great Vessels The aortic root is normal in size. The ascending aorta is not well-visualized. IVC is normal in size and collapses >50% with inspiration. Pericardium There is no pericardial effusion. Other Information Study Quality: Adequate Conclusion Normal biventricular systolic function. No significant valvular stenosis or regurgitation. Electronically signed by : Selma Hoover MD 08/26/2024 00:49:52
== END 2024-08-22 23:59 | disposition home or self-care (01) ==
LOC: RT 08:06
PROVIDERS: PCP Family Medicine; Visit Provider Nurse Practitioner Family
DX: R01.1 Cardiac murmur, unspecified (principal); R07.89 Other chest pain; R06.09 Other forms of dyspnea; R94.31 Abnormal electrocardiogram [ECG] [EKG]
CPT/HCPCS: 93017; 93018; 93306